=== PATIENT | male | born 2000 | race Caucasian/White ===

== ENCOUNTER 2019-05-25 17:18 | Inpatient (IN) | payer OTHER ==
[~2019-05-25] VITALS: Ht 167.6 cm; Wt 53.1 kg
[2019-05-25 17:24] VITALS: BP_SYST 116
--- NOTE | 2019-05-25 17:30 | NUR ---
ER Dr. Lopez at bedside examining patient.
--- NOTE | 2019-05-25 17:30 | NUR ---
Patient to ER bed 2 to gown for evaluation. Side rails up. Report given to Frida MCINTOSH.
[2019-05-25] MEDS ORDERED: NACL 0.9% 1,000 ML IV ONE (17:32)
[2019-05-25] MEDS ORDERED: KETOROLAC TROMETHAMINE 30 MG VIAL IVP ONE (17:45)
[2019-05-25] MEDS ORDERED: ONDANSETRON HCL 4 MG/2 ML VIAL IVP ONE ×2 (17:45→19:15)
--- NOTE | 2019-05-25 17:45 | NUR ---
Pt Brought in by family. Pt states that he has had abdominal pain with onset a couple days ago. Pain is in RLQ and radiates to flank. Pt states that he has nausea and x2 episodes of vomiting. Pt has no other medical complaint at this time. Pt denies chest pain, shortness of breath, any other complaint at this time. Pt resting comfortably in bed. Vital signs are stable, st given blanket for comfort. Will continue to monitor. Pt pain 03/06 .
--- NOTE | 2019-05-25 17:55 | NUR ---
# 18 gauge angiocath placed to RAC. Use of asceptic technique. Opsite placed over site. Blood return noted. Blood for lab drawn from site. Flushed with 10 cc of normal saline. No evidence of infiltration noted. Patient tolerated well.
--- NOTE | 2019-05-25 18:00 | NUR ---
Patient transported to radiology via Wheelchair, accompanied by Radiology staff.
--- NOTE | 2019-05-25 18:10 | NUR ---
Returned from radiology, back to [facility].
[2019-05-25 18:26] LABS: BILIRUBIN,URINE 1+ (NEGATIVE); BLOOD, URINE 1+ (NEGATIVE); CLARITY/URINE CLEAR (CLEAR); COLOR,URINE YELLOW (YELLOW); GLUCOSE,URINE NEGATIVE (NEGATIVE); KETONES,URINE 3+ (NEGATIVE); LEUKOCYTE ESTERASE ,URINE NEGATIVE (NEGATIVE); NITRITE, URINE NEGATIVE (NEGATIVE); PROTEIN URINE NEGATIVE (NEGATIVE)
[2019-05-25 18:32] LABS: BASOPHILS % (AUTO) 0.2 % (0.0-2.0); EOSINOPHILS % (AUTO) 0.1 % (0.0-4.0); HEMATOCRIT 46.1 % (36-54); HEMOGLOBIN 15.9 g/dL (14.0-18.0); LYMPHOCYTES # (AUTO) 1.1 K/uL (1.0-5.5); LYMPHOCYTES % (AUTO) 8.4 % (20.5-51.5); MEAN CORPUSCULAR HEMOGLOBIN 31 pg (27-31); MEAN CORPUSCULAR HGB CONC 34 % (32-36); MEAN CORPUSCULAR VOLUME 90 fL (79.0-98.0); MONOCYTES # (AUTO) 1.3 K/uL (0.0-1.0); MONOCYTES % (AUTO) 9.4 % (1.7-9.3); NEUTROPHILS % (AUTO) 81.9 % (40.0-70.0); PLATELET COUNT (AUTO) 235 K/uL (130-430); RED BLOOD CELL COUNT(AUTO) 5.11 MIL/uL (4.2-6.2); RED CELL DISTRIBUTION WIDTH 13.8 % (9.0-15.0); WHITE BLOOD COUNT (AUTO) 13.4 K/uL (4.5-11.0)
[2019-05-25 18:38] LABS: CALCIUM 9.2 mg/dL (8.4-11.0); CREATININE 0.94 mg/dL (0.55-1.30); POTASSIUM 3.6 mmol/L (3.5-5.1)
--- NOTE | 2019-05-25 18:40 | NUR ---
Pt resting in bed comfortably. No additional complaint at this time, post medication administration. Pt recieving iv fluids, tolerating well.
[2019-05-25 18:42] LABS: INR 1.1 (0.80-1.20); PROTHROMBIN TIME 10.9 SECS (9.5-12.5)
[2019-05-25 18:44] LABS: ALBUMIN 5.2 g/dL (3.4-4.8); TOTAL BILIRUBIN 1.2 mg/dL (0.0-1.0)
[2019-05-25 19:07] LABS: BACTERIA,URINE FEW /HPF (None Seen); RBC,URINE 0-3 /HPF (0-3); WBC,URINE 0-3 /HPF (0-3)
[2019-05-25 19:08] LABS: MUCUS,URINE 1+ /LPF (None Seen)
[2019-05-25] MEDS ORDERED: MORPHINE 2 MG/ML INJ. SYRINGE IVP ONE (19:15)
[2019-05-25] MEDS ORDERED: cefOXitin 1 GM IVPB PREMIX 50 ML IV ONE (19:15)
--- NOTE | 2019-05-25 19:45 | NUR ---
Spoke with and . Took Phone orders with readback, entered orders for M/S Floor.
--- NOTE | 2019-05-25 19:48 | NUR ---
Lab bedside for blood draw (2nd Lactic), well tolerated
--- NOTE | 2019-05-25 19:49 | NUR ---
Pt Tolerated Lactic Acid Draw well. Pt resting in ED bed.
--- NOTE | 2019-05-25 19:56 | NUR ---
Patient will be admitted to care of . Admitted to M/S unit. Belongings list completed. Summary report printed.
--- NOTE | 2019-05-25 19:57 | NUR ---
Patient to go to [address].
[2019-05-25] MEDS ORDERED: MORPHINE 4 MG/ML INJ. SYRINGE IVP PRN ×2 (20:00→20:30)
[2019-05-25] MEDS ORDERED: ONDANSETRON HCL 4 MG/2 ML VIAL IVP PRN ×2 (20:00→20:30)
--- NOTE | 2019-05-25 20:25 | NUR ---
Pt resting comfortably in ED bed. Pt states moderate pain relief with medication
[2019-05-25] MEDS ORDERED: ACETAMINOPHEN 650 MG SUPP.RECT RC PRN (20:30)
--- NOTE | 2019-05-25 20:58 | NUR ---
Patient will be admitted to care of . Admitted to M/S unit to have Appendectomy tomorrow AM with . Will go to room 122B. Belongings list completed. Summary report printed. Report will be given at bedside.
--- NOTE | 2019-05-25 21:15 | NUR ---
ADMISSION NOTE Received patient from ER via gurney. Patient admitted with diagnosis of Appendicitis. Patient is awake, alert, oriented X 4. Patient oriented to hospital room, call light, toileting, pain management and safety-teach back done. Patient informed that DAYNA Sawyer will be primary nurse and that their room number is 122B. Personal belongings checked and Belongings List documented. Call light within reach.
[2019-05-25 21:41] VITALS: BP_SYST 103
--- NOTE | 2019-05-25 21:41 | NUR ---
Patient is fully awake, alert and oriented x4. IV site in RFA is without any signs of infiltration. Patient was instructed on nothing by mouth for surgery tomorrow and patient verbalized understanding. Call light is with patient and bed is the lowest and locked positions. Patient's friend is in the room with the patient.
[2019-05-25] MEDS ORDERED: FLU VACC QS2019-20 36MOS UP/PF 60 MCG/0.5 ML SYRINGE I.M. PRN (22:15)
--- NOTE | 2019-05-25 22:25 | NUR ---
CONSULT: CONSULT CALLED FOR NYASIA ANAYA I SPOKE WITH JACQUES GUNN REASON FOR CONSULT: ACUTE APPENDICITIS REQUESTING CONSULT: DR. العلي FERMENTOLOGIST PHONE NUMBER: [phone]
--- NOTE | 2019-05-25 22:34 | NUR ---
Dr. Oconnor called and gave new orders. Dr. Oconnor stated that the patient is scheduled for surgery at 0730 and to obtain consent.
[2019-05-25] MEDS: D5LR 1,000 ML IV SCH (22:57)
[2019-05-25] MEDS ORDERED: PIPERACILLIN/TAZOBACTAM 3.375 GM/VIAL (ZOSYN) IV ONE (22:59)
[2019-05-25] MEDS: PIPERACILLIN/TAZO 3.375/DEX-IS 50 ML IV SCH (23:14)
[2019-05-26] VITALS (8 sets, daily range): BP systolic 95–110
--- NOTE | 2019-05-26 | NUR ---
IV fluid is infusing well in RFA. Patient remains NPO for surgery in the morning. Patient wants to sign consent after Dr. Oconnor speaks with him regarding surgery. Fall and safety precautions are in place.
--- NOTE | 2019-05-26 02:00 | NUR ---
Patient is sleeping with no signs of distress. IV fluid is infusing well. Fall and safety precautions are in place.
--- NOTE | 2019-05-26 04:00 | NUR ---
Patient was sleeping. No signs of distress were present. Fall and safety precautions were in place. IV fluid is infusing well in RFA.
[2019-05-26] MEDS: PIPERACILLIN/TAZO 3.375/DEX-IS 50 ML IV SCH ×3 (05:37→18:07)
--- NOTE | 2019-05-26 06:00 | NUR ---
Patient was resting in bed. IV fluid was infusing well in RFA. Patient denies pain and discomfort.
--- NOTE | 2019-05-26 06:20 | NUR ---
Patient cleaned body with CHG wipes and was assisted with help of friend. Complete bed linen change including patient's gown done. IV fluid is infusing well in RFA. Patient remains NPO for surgery at 0730. Fall and safety precautions are in place. Will endorse to day shift nurse.
--- NOTE | 2019-05-26 06:58 | NUR ---
Levar in OR was informed pt has not signed surgical consent, pending explanation of the surgery to him by Dr. Oconnor. Pt is c/o 11/04 RLQ pain. Per Levar, pt should wait for Dr. Oconnor and Anesthesiologist to discuss with him prior to receiving pain med at this time.
--- NOTE | 2019-05-26 07:25 | NUR ---
RN INITIAL NOTES RECEIVED PATIENT IN BED ALERT X 4 NO DISTRESS NPO MAINTAINED PATIENT IS FOR APPENDECTOMY TODAY , CONSENT WILL BE SECURED IN OR. DR AVILA HERE SPOKE WITH PATIENT AND OR STAFF TOOK THE PATIENT TO SURGERY
[2019-05-26] MEDS ORDERED: LR 1,000 ML IV SCH (08:18)
[2019-05-26] MEDS ORDERED: HYDROmorphone 1 MG INJ. 1 MG/ML AMPUL IVP PRN ×2 (08:30)
[2019-05-26] MEDS ORDERED: MORPHINE 4 MG/ML INJ. SYRINGE IVP PRN (08:30)
[2019-05-26] MEDS ORDERED: HYDROmorphone 2 MG/ML VIAL IVP PRN (08:30)
[2019-05-26] MEDS ORDERED: METOCLOPRAMIDE HCL 10 MG/2 ML VIAL IVP PRN (08:30)
[2019-05-26] MEDS ORDERED: ONDANSETRON HCL 4 MG/2 ML VIAL IVP PRN (08:30)
[2019-05-26] MEDS ORDERED: SEVOFLURANE 15 MIN GAS INH ONE (08:40)
[2019-05-26] MEDS ORDERED: ONDANSETRON HCL 4 MG/2 ML VIAL ONE (08:40)
[2019-05-26] MEDS ORDERED: D5LR 1,000 ML IV.SOLN IV ONE (08:40)
[2019-05-26] MEDS ORDERED: NS IRRIG SOLN 1000 ML IR ONE (08:40)
[2019-05-26] MEDS ORDERED: MIDAZOLAM HCL 5 MG/ML VIAL (VERSED) IV ONE (08:40)
[2019-05-26] MEDS ORDERED: NEOSTIGMINE METHYLSULFATE 1 MG/ML, 10 ML VIAL ONE (08:40)
[2019-05-26] MEDS ORDERED: PHENYLEPHRINE HCL 10 MG/ML VIAL (NEOSYNEPHRINE) ONE (08:40)
[2019-05-26] MEDS ORDERED: LR 1,000 ML IV.SOLN IV ONE (08:40)
[2019-05-26] MEDS ORDERED: ROCURONIUM BROMIDE 10 MG/ML (ZEMURON) ONE (08:40)
[2019-05-26] MEDS ORDERED: GLYCOPYRROLATE 0.2 MG/ML VIAL ONE (08:40)
[2019-05-26] MEDS ORDERED: fentaNYL CITRATE 250 MCG/5 ML AMP ONE (08:40)
[2019-05-26] MEDS ORDERED: PROPOFOL 200MG/ 20ML VIAL (DIPRIVAN) IV ONE (08:40)
[2019-05-26] MEDS ORDERED: HYDROmorphone 1 MG INJ. 1 MG/ML AMPUL ONE (09:29)
--- NOTE | 2019-05-26 09:42 | NUR ---
RETURN FROM SURGERY PATIENT BACK FROM SURGERY AWAKE AND VERBAL NO SIGN OF DISTRESS WITH 3 LAP AP SITES TO LEFT ABDOMEN DRESSING INTACT NO BLEEDING NOTED , PATIENT JUST HAD DILAUDID FROM SURGERY , PATIENT AWARE OF THE PLAN OF POST OP CARE, VITAL SIGN TAKEN
--- NOTE | 2019-05-26 12:00 | NUR ---
PAIN /LOW GRADE FEVER PATIENT ADVISED NOT TO TALK MUCH FOR NOW AND REST WITH LOW GRADE FEVER INCREASE FLUID INTAKE AND ADVISED TO MOVE /TURN TO SIDES TOLERATED WILL CONT TO MONITOR PAIN , DRESSING INTACT CONT WITH IVF ORDERED
[2019-05-26] MEDS: ACETAMINOPHEN/CODEINE 300 MG-30 MG TABLET PO PRN (12:29)
--- NOTE | 2019-05-26 14:00 | NUR ---
AMBULATORY PATIENT ADVISED EARLY AMBULATION AND SAFETY ENSURED PATIENT ABLE TO AMBULATES AROUND WITH FRIENDS AND TOLERATED THE ACTIVITY
[2019-05-26] MEDS: D5LR 1,000 ML IV SCH (14:35)
--- NOTE | 2019-05-26 14:37 | NUR ---
Dietitian Recommendations * Continue regular diet. * Encourage PO intake. LP, RD Please refer to Nutrition Assessment for details. Signed: 05/26/19 at 1438 by Letty PILLAI <Co-Signature Required> Co-Signed: 05/26/19 at [address] Addendum: 05/26/19 at 1439 by Letty PILLAI Amended: Links added.
--- NOTE | 2019-05-26 18:34 | NUR ---
END RN NOTES WILL ENDORSE TO NEXT SHIFT CONT CARE AND PATIENT WILL CONT WITH IV ATB ORDERED AND WILL CONT TO ADVISED FLUID PO TOLERATED AND AMBULATION TO CONT , PER PATIENT STILL DID NOT PASS GAS AND NO BM STILL . TOERATING REGULAR FOOD BUT ADVISED CAUTION Addendum: 05/26/19 at 1901 by Sharmila Sherman RN DR ZOHRA DAVIS VISIT PATIENT AND INFORMED PATIENT CONDITION AMBULATES AND STILL NO PASSING OF GAS
--- NOTE | 2019-05-26 20:00 | NUR ---
Patient is resting in bed. Patient is AOOx4. Friend is at the bedside. 3 Lap sites on abdomen noted. Middle site dressing noted with small amount of old blood stain. No evidence of active bleeding noted. Patient denies pain or discomfort at this time. IV fluid of D5LR is infusing well in RFA at 100ml/hr w/o any signs of infiltration noted. Patient was encouraged to use IS 10x per hour while awake. Patient has SCD's on. Patient verbalized understanding. Patient IS usage is at 2500ml. Fall and safety precautions are in place. Patient's bed is in lowest and locked positions. Call light is with patient. Patient was instructed to call for assistance.
--- NOTE | 2019-05-26 22:00 | NUR ---
IVF is infusing well in RFA. Pt denies pain or discomfort. Lap sites abdominal dressings are dry and intact. Fall and safety precautions are in place.
[2019-05-27] VITALS: BP_SYST 98
--- NOTE | 2019-05-27 | NUR ---
Patient was resting in bed. Patient's friend is at bedside with patient. Bed is in the lowest and locked position. Call light is with patient. Patient's IV fluid is running at 100ml/hr in RFA. Site is without signs of infiltration. Fall and safety precautions are in place.
[2019-05-27] MEDS: PIPERACILLIN/TAZO 3.375/DEX-IS 50 ML IV SCH ×5 (00:13→23:58)
--- NOTE | 2019-05-27 00:15 | NUR ---
Upon walking into the patient's room the patient had ambulated to the restroom with the help of friend at bedside. The patient reported urine void with no bowel movement.
[2019-05-27] MEDS: ACETAMINOPHEN/CODEINE 300 MG-30 MG TABLET PO PRN ×2 (00:25→06:36)
--- NOTE | 2019-05-27 00:25 | NUR ---
Patient C/O of 6/10 abd pain. Tylenol w/ codeine #3, one tablet was given to the patient PO. Fall and safety precautions are in place. Patient declined bed alarm and nurse instructed patient to call if he needed assistance. Patient's friend is at bedside.
[2019-05-27] MEDS: D5LR 1,000 ML IV SCH ×3 (00:26→23:58)
--- NOTE | 2019-05-27 02:00 | NUR ---
Pt is sleeping comfortably in bed. IVF is infusing well in RFA. Fall and safety are in place.
--- NOTE | 2019-05-27 04:00 | NUR ---
Pt is sleeping without any distress noted. IVF of D5LR is infusing well in RFA at 100ml/hr. Call light is with pt and bed is in the lowest and locked positions.
[2019-05-27 06:27] LABS: BASOPHILS % (AUTO) 0.1 % (0.0-2.0); EOSINOPHILS % (AUTO) 0.5 % (0.0-4.0); HEMATOCRIT 36.1 % (36-54); HEMOGLOBIN 12.5 g/dL (14.0-18.0); LYMPHOCYTES # (AUTO) 1.3 K/uL (1.0-5.5); LYMPHOCYTES % (AUTO) 13.3 % (20.5-51.5); MEAN CORPUSCULAR HEMOGLOBIN 32 pg (27-31); MEAN CORPUSCULAR HGB CONC 35 % (32-36); MEAN CORPUSCULAR VOLUME 91 fL (79.0-98.0); MONOCYTES # (AUTO) 0.8 K/uL (0.0-1.0); MONOCYTES % (AUTO) 8.5 % (1.7-9.3); NEUTROPHILS # (AUTO) 7.3 K/uL (1.8-7.7); NEUTROPHILS % (AUTO) 77.6 % (40.0-70.0); PLATELET COUNT (AUTO) 179 K/uL (130-430); RED BLOOD CELL COUNT(AUTO) 3.97 MIL/uL (4.2-6.2); RED CELL DISTRIBUTION WIDTH 14.1 % (9.0-15.0); WHITE BLOOD COUNT (AUTO) 9.4 K/uL (4.5-11.0)
--- NOTE | 2019-05-27 06:30 | NUR ---
Patient is resting comfortably. Patient's bed is in the lowest and locked position. Patient has friend at bedside that assist him to ambulate to the bathroom. Fall and safety precautions are in place. Patient is AOOx4. All patient's needs were attended to. IV fluid is infusing RFA, no signs of infiltration. Will endorse to dayshift nurse.
[2019-05-27 06:52] LABS: ALBUMIN 3.5 g/dL (3.4-4.8); CALCIUM 8.7 mg/dL (8.4-11.0); CREATININE 1.09 mg/dL (0.55-1.30); POTASSIUM 4.1 mmol/L (3.5-5.1)
[2019-05-27 07:56] VITALS: BP_SYST 97
[2019-05-27 08:00] VITALS: BP_SYST 97
--- NOTE | 2019-05-27 08:01 | NUR ---
RN INITIAL NOTES RECEIVED PATIENT IN BED ALERT AWAKE NOT IN ANY DISTRESS, IVF INFUSING TO RT AC ORDERED JUST HAD THE PAIN SHOT , WILL MONITOR , PATIENT ADVISED AMBULATION , WILL CONT POST OP CARE , STILL WITH PAIN , 3 LAP AP INTACT NO FURTHER BLEEDING ON THE DRESSING
--- NOTE | 2019-05-27 10:00 | NUR ---
ROUNDS AMBULATES AND ON PAIN MGT WILL EVAL PAIN MEDS
--- NOTE | 2019-05-27 10:30 | NUR ---
Nutrition POD#1 Patient has low appetite and regular diet since surgery. Abdomen tender, nondistended. Dressing with 3 cm dried sanguinous drainage. No nausea or vomiting. No bowel movement post-op. Patient educated on importance of nutrition to aid healing post-op. Discussed food preferences, none reported. Patient educated on importance of restoring GI motility post-op. Patient refused eating breakfast and dinner last night. Patient increased intake of water. Patient went on an assisted walk. Continue to evaluate changes in appetite, food tolerance, and mobility.
[2019-05-27] MEDS: MORPHINE 2 MG/ML INJ. SYRINGE IVP PRN ×2 (11:03→23:40)
--- NOTE | 2019-05-27 12:00 | NUR ---
ROUNDS PATIENT ASLEEP AFTER MORPHINE GIVEN
--- NOTE | 2019-05-27 14:00 | NUR ---
ROUNDS PATIENT AT THIS TIME DRINKING FLUIDS AND JUICE WITH A SMILE IN HIS FACE ENCOURAGE TO AMBULATE AND TO USE THE SPIROMETER
--- NOTE | 2019-05-27 15:32 | NUR ---
AMBULATES PATIENT AMBULATING SLOWLY IN THE HALLWAY TOLERATING PAIN
[2019-05-27 15:52] VITALS: BP_SYST 109
--- NOTE | 2019-05-27 17:00 | NUR ---
MARA PATIENT VISITED WITH FRIENDS NO COMPLAINED OF PAIN
--- NOTE | 2019-05-27 18:28 | NUR ---
ENDORSEMENT WILL ENDORSE TO NEXT SHIFT CONT CARE , OF THIS TIME PATIENT BLOOD TRANSFUSION STILL PENDING D/T [facility] DID NOT DELIVER BLOOD YET , PATIENT IS AWARE AND UNDERSTOOD ABOUT THE DELAY D/T TO THE ANTIBODY SITUATION , RESTED AND COMFORT MEASURES PROVIDED
--- NOTE | 2019-05-27 18:32 | NUR ---
ENDORSEMENT PATIENT TOLERATING AMBULATION AND NO COMPLAIN OF PAIN SO FAR A THIS TIME , NO ADVERSE REACTION TO IV ATB GIVEN NO FURTHER BLEEDING NOTED TO 3 LAP AP SITES , WILL CONT WITH PRESENT.
[2019-05-27 20:00] VITALS: BP_SYST 125
[2019-05-28 01:21] VITALS: BP_SYST 99
[2019-05-28 08:03] VITALS: BP_SYST 103
--- NOTE | 2019-05-28 08:10 | NUR ---
Opening notes, Received pt in bed, pt is aaox4, denies pain, no sob, no resp distress. dressing on abdomen dry and intact. Iv access not good, will start a new one. safety precaution in place , call light in reach. bed in low position. encouraged to call for assist and pain meds. will cont to monitor.
[2019-05-28] MEDS: D5LR 1,000 ML IV SCH ×2 (08:30→17:13)
[2019-05-28] MEDS: PIPERACILLIN/TAZO 3.375/DEX-IS 50 ML IV SCH ×4 (08:59→23:27)
--- NOTE | 2019-05-28 08:59 | NUR ---
new iv access started on right forearm aseptically, pt tolerated well.
[2019-05-28 11:28] VITALS: BP_SYST 106
--- NOTE | 2019-05-28 13:45 | NUR ---
DR العلي HERE AND SEEN PT, SAID TO DC PT HOME, PT TO FOLLOW UP WITH DR AVILA IN 1 WEEK.
[2019-05-28] MEDS ORDERED: AMOX-426 PO (13:53)
[2019-05-28] MEDS ORDERED: LACT1CAP61 PO (13:53)
[2019-05-28 14:01] VITALS: BP_SYST 106
[2019-05-28] MEDS ORDERED: MULT1CAP34 PO (14:15)
--- NOTE | 2019-05-28 15:08 | NUR ---
DR العلي HERE, MADE AWARE THAT PT IS ESBL POSITIVE. SAID TO HOLD DISCHARGE.
--- NOTE | 2019-05-28 15:32 | NUR ---
CONSULTATION PAGED REASON FOR CONSULTATION:ESBL/ APPENDIX WAS CONSULT CALLED?Y PERSON WHO WAS NOTIFIED:NOEMI CONSULTING PHYSICIAN:SYEDA OJEDA GRADES 1 THRU 6 VISITING TEACHER SPECIALTY:INFECTIOUS DISEASE GRADES 1 THRU 6 VISITING TEACHER PHONE NUMBER:[phone] REQUESTING PHYSICIAN:ROOSEVELT ORTEZ
[2019-05-28 16:59] VITALS: BP_SYST 113
--- NOTE | 2019-05-28 17:29 | NUR ---
REMOVED PT GAUZE DRESSING ON 3 LAP SITES, NO BLEEDING, NO DRAINAGE NOTED, STERISTRIPS NOTED ON EACH SITE, INSTRUCTED PATIENT NO TO REMOVED IT IT WILL PEEL OFF BY ITSELF. TOLD PT THAT WHEN HE TAKES SHOWER, DO NOT LET THE WATER FROM THE SHOWER HEAD HIT THE WOUND DIRECTLY. ALSO TO PAT DRY THE SITES WITH CLEAN AND DRY TOWEL. PT VERBALIZED UNDERSTANDING.
--- NOTE | 2019-05-28 19:30 | NUR ---
OPENING NOTES RECEIVED REPORT. PATIENT IS RESTING COMFORTABLY IN BED, WATCHING TV AND TALKING TO FRIEND. NO SIGNS OF DISTRESS NOTED. BREATHING EVEN AND UNLABORED. IV PATENT AND INTACT, INFUSING FLUIDS. PATIENT IS PASSING GAS, NO BM YET. STERISTRIPS TO ABDOMEN ARE CLEAN, DRY AND INTACT, X 3. UPDATED PATIENT ON PLAN OF CARE. PATIENT VERBALIZED UNDERSTANDING. PATIENT ATE OUTSIDE FOOD BROUGHT IN BY FRIEND. NO NEEDS AT THIS TIME. CALL LIGHT WITH THE PATIENT. SAFETY PRECAUTIONS IN PLACE.
--- NOTE | 2019-05-28 19:52 | NUR ---
CLOSING NOTES, PT HAD SLIGHT TEMP OF 99.8, ENDORSED TO NIGHT RN TO MONITOR TEMP. OTHERWISE PT IS STABLE, AMBULATED IN THE HALLWAY.
--- NOTE | 2019-05-28 21:49 | NUR ---
RESTING PATIENT RESTING IN BED. VSS. NO FEVER. IVF INFUSING WELL. NO NEEDS AT THIS TIME. FRIEND AT BEDSIDE. PATIENT IS AMBULATORY WITH STEADY GAIT. CALL LIGHT WITH THE PATIENT. SAFETY PRECAUTIONS IN PLACE.
[2019-05-28 22:04] VITALS: BP_SYST 117
--- NOTE | 2019-05-28 23:32 | NUR ---
SLEEPING PATIENT IS SLEEPING. NO SIGNS OF DISTRESS NOTED. BREATHING EVEN AND UNLABORED. IV ABX INFUSING. NO NEEDS AT THIS TIME. CALL LIGHT WITH THE PATIENT. SAFETY PRECAUTIONS IN PLACE.
[2019-05-29] VITALS (7 sets, daily range): BP systolic 107–122
[2019-05-29] MEDS: MORPHINE 2 MG/ML INJ. SYRINGE IVP PRN (01:54)
[2019-05-29] MEDS: D5LR 1,000 ML IV SCH ×2 (02:00→14:30)
--- NOTE | 2019-05-29 02:02 | NUR ---
Pain Patient complains of 6/10 pain to abdomen. PRN pain med given. VSS. Educated the action and side effects of medications and fall precautions. Patient verbalized understanding and tolerated well. No signs of allergic reaction noted. No other needs. Call light with the patient. Safety precautions in place. Friend at bedside.
--- NOTE | 2019-05-29 04:30 | NUR ---
Sleeping No signs of distress noted. Breathing even and unlabored. IVF infusing well. Call light with the patient. Safety precautions in place.
[2019-05-29] MEDS: PIPERACILLIN/TAZO 3.375/DEX-IS 50 ML IV SCH ×2 (05:00→11:21)
[2019-05-29 06:14] LABS: ALBUMIN 2.8 g/dL (3.4-4.8); CALCIUM 8.4 mg/dL (8.4-11.0); CREATININE 0.86 mg/dL (0.55-1.30); POTASSIUM 3.5 mmol/L (3.5-5.1); TOTAL BILIRUBIN 0.4 mg/dL (0.0-1.0)
--- NOTE | 2019-05-29 06:34 | NUR ---
Closing notes Patient is resting comfortably in bed. No signs of distress noted. Breathing even and unlabored. IV patent and intact, infusing fluids. No complaints of pain. All needs met throughout the shift. Call light with the patient. Safety precautions in place. Will endorse care to day shift RN.
[2019-05-29 07:13] LABS: BASOPHILS % (AUTO) 0.3 % (0.0-2.0); EOSINOPHILS # (AUTO) 0.2 K/uL (0.0-0.4); HEMATOCRIT 30.9 % (36-54); HEMOGLOBIN 10.9 g/dL (14.0-18.0); LYMPHOCYTES # (AUTO) 1.1 K/uL (1.0-5.5); LYMPHOCYTES % (AUTO) 20.1 % (20.5-51.5); MEAN CORPUSCULAR HEMOGLOBIN 32 pg (27-31); MEAN CORPUSCULAR HGB CONC 35 % (32-36); MEAN CORPUSCULAR VOLUME 90 fL (79.0-98.0); MONOCYTES # (AUTO) 0.6 K/uL (0.0-1.0); MONOCYTES % (AUTO) 10.4 % (1.7-9.3); NEUTROPHILS # (AUTO) 3.7 K/uL (1.8-7.7); NEUTROPHILS % (AUTO) 66.2 % (40.0-70.0); PLATELET COUNT (AUTO) 189 K/uL (130-430); RED BLOOD CELL COUNT(AUTO) 3.44 MIL/uL (4.2-6.2); RED CELL DISTRIBUTION WIDTH 13.7 % (9.0-15.0)
[2019-05-29 07:53] LABS: WHITE BLOOD COUNT (AUTO) 5.6 K/uL (4.5-11.0)
--- NOTE | 2019-05-29 07:57 | NUR ---
AM ROUNDS: Patient is oriented x4. Denies pain. Three laparoscopic incision in the abdomen with steri strips all intact and dry. Encouraged to increase ambulation, reinforced use of incentive spirometer, reaches 1000 level. Call light within reach.
--- NOTE | 2019-05-29 08:45 | NUR ---
Care assumed from Bushra. Patient is Divehi speaking, but able to speak some Tajik. Ambulatory, with friend at bedside. Instructed to use call light for needs, bed locked at the lowest position, will continue to monitor.
--- NOTE | 2019-05-29 11:12 | NUR ---
Nutrition F/U RD reviewed pt's current EMR including diet Hx, physician notes, nursing notes, pertinent labs/meds/procedures, care trends and care activity. Current Diet Order: Regular diet x 3 days Subjective information: Pt seen sitting up in bed at time of RD visit. IV infusing. Pt c/o feeling weak. Breakfast tray at bedside, pt only ate 50% of the eggs. Pt verbalized food preferences, RD to note in [employer]. Pt is S/P lap appendectomy 05/26/19. RD provided verbal education on protein intake and Charles for wound healing. Pt declined any protein supplements and stated that he will just eat the meat exchange from meal tray. Pt verbalized understanding and agreed to try Charles. Current PO intake: Poor 44% average of 4 meals Estimated Energy Expenditure (kcals/day) 3543-5511 kcal/day (30-35 kcal/kg IBW for sepsis, gradual wt gain) Estimated Protein Required (g/day) 98-130 gm/day (1.5-2 gm/kg IBW for sepsis, gradual wt gain) Estimated Fluid Required (l/day) 1.9-2.2 L/day (30-35 ml/kg IBW for dehydration) Problem/Etiology/Signs/Symptoms Increased nutritional needs related to catabolic condition as evidenced by estimated nutritional needs for sepsis/dehydration and wound healing. *ongoing Expected Outcomes/Goals - Monitor appetite and PO intake w/ goal of pt meeting at least 75% of estimated nutritional needs, labs trending WNL, normal GI function, skin integrity/wt maintenance. Dietitian Recommendations * Recommend Regular diet w/ Charles BID. Modular will provide additional 192 kcal and 5 gm protein daily. * Recommend 2 servings of entree TID. * Encourage PO intake. Follow Up High Risk: F/U in 2-3days
--- NOTE | 2019-05-29 11:23 | NUR ---
Dietitian Recommendations * Recommend Regular diet w/ Charles BID. Modular will provide additional 192 kcal and 5 gm protein daily. * Recommend 2 servings of entree TID. * Encourage PO intake. Please see Nutrition F/U note for details. ZULMA MURPHY
--- NOTE | 2019-05-29 14:20 | NUR ---
Patient is at rest, no signs of distress noted.
--- NOTE | 2019-05-29 15:20 | NUR ---
Dr. Herring assessed patient. states that patient may leave after Invanz.
[2019-05-29] MEDS ORDERED: ERTAPENEM SODIUM 1 GM in NS 50 ML IV ONE (15:30)
--- NOTE | 2019-05-29 18:55 | NUR ---
D/C Patient Patient given medication reconciliation form and D/C instructions. Exit Care provided. Patient verbalized understanding. MD discussed with patient the results and treatment provided. Ambulatory with steady gait for discharge to home. Patient in stable condition, ID band removed. IV catheter removed, intact and dressing applied, no active bleeding. Rx of Augmentin PO is given. Patient educated on pain management. All belongings sent with patient.
== END 2019-05-29 18:25 | disposition home or self-care (01) | DRG 343 ==
LOC: SED 17:18 → SMU 19:39
PROVIDERS: ADMIT Internal Medicine; ATTEND Internal Medicine
PROC: 0DTJ4ZZ Resection of Appendix, Percutaneous Endoscopic Approach (ICD-10-PCS; principal; 2019-05-26 07:30)
DX: K35.30 Acute appendicitis with localized peritonitis, without perforation or gangrene (principal); Z78.9 Other specified health status
CPT/HCPCS: 36415; 80053; 81000-TC; 83605; 83690-TC; 85025; 85610-TC; 85730-TC; 86886; 86900; 86901; 87040-TC; 87070; 87070-TC; 87075-TC; 87081; 87186-TC; 88304; 96361; 96365; 96375; 96376; 99285; C1727; J0694; J1170; J1335; J1885; J2250; J2270; J2370; J2405; J2543; J2704; J2710; J3010; J3490; J7030; J7060; J7120